=== PATIENT | male | born 1975 | race Caucasian/White ===

== ENCOUNTER 2020-04-21 18:42 | Emergency (ER) | payer SELFPAY ==
[~2020-04-21] VITALS: Ht 170.1 cm; Wt 67.7 kg
--- OUTSIDE RECORDS SUMMARY | 2020-04-21 19:07 | XMS REPORT | Continuity of Care Document ---
Author Author [facility] Organization [employer] Address Unknown Phone Unavailable Allergies There is no data. Medications There is no data. Problems There is no data. Procedures There is no data. Results There is no data. Encounters ACCT No. Visit Date/Time Discharge Status Pt. Type Provider Facility Loc./Unit Complaint [id number] 04/21/2020 18:43:[address] Emergency LUCIEN VENEGAS, GER [facility] FS FALL,ABD/BACK/HIP PAIN
--- NOTE | 2020-04-21 19:08 | ED Trauma-Multisystem ---
General Chief Complaint: Trauma-Non Activation Stated Complaint: FALL,ABD/BACK/HIP PAIN History of Present Illness Date Seen by Provider: Apr 21, 2020 Time Seen by Provider: 18:45 Initial Comments Patient fell approximately 12 feet off a roof landing on his feet but then immediately being catapulted back onto his back onto the lab that he just chopped. 70 days ago and just over the last 24 hours pain has gotten much more substantial across the sacrum up into the mid back up into the flank region difficult to straining at the stool at all difficult to sit better to stand or lay down. He is able to pass bowels and bladder he has no numbness in those areas. Severity: Moderate Pain/Injury Location: Back, Pelvis Method of Injury: Fall Modifying Factors: Immobilization; No Jarring, No Movement Loss of Consciousness: No Loss of Consciousness Associated Symptoms (Fall): No Chest Pain, No Dizziness, No Headache, No Lightheadedness, No Nausea/Vomiting, No Neck Pain, No Shortness of Air Allergies and Home Medications Allergies Coded Allergies: No Known Drug Allergies (Unverified , 04/21/20) Patient Home Medication List Home Medication List Reviewed: Yes Review of Systems Review of Systems Constitutional: No chills, No dizziness, No malaise Eyes: Denies Blurred Vision, Denies Decreased Acuity Ears: No Symptoms Reported; Denies Dizziness Nose: No Symptoms Reported Mouth: No Symptoms Reported Throat: No Symptoms to Report Respiratory: No short of breath; other (mild pain on deep breathing) Cardiovascular: Denies Chest Pain, Denies Irregular Heart Rate Gastrointestinal: No diarrhea, No nausea, No vomiting Musculoskeletal: back pain, muscle pain, muscle stiffness; No muscle twitching, No muscle weakness, No neck pain Skin: No change in color, No lesions Psychiatric/Neurological: Denies Headache, Denies Numbness, Denies Tingling Past Uisxtdy-Grutdi-Klbkzk Hx Past Med/Social Hx: Reviewed Nursing Past Med/Soc Hx Patient Social History Recent Foreign Travel: No Contact w/Someone Who Travel: No Physical Exam Vital Signs Vital Signs - First Documented 04/21/20 18:51 Temp 36.9 Pulse 96 Resp 18 B/P (MAP) 159/79 (105) Pulse Ox 99 O2 Delivery Room Air Height, Weight, BMI Height: '" Weight: lbs. oz. kg; BMI Method: General Appearance: WD/WN, Moderate Distress Head: No Evidence of Injury Ears, Nose, Throat: Hearing Grossly Normal Neck: Full Range of Motion, Non Tender Cardiovascular: Regular Rate, Rhythm, No Murmur Respiratory: Lungs Clear, Normal Breath Sounds Gastrointestinal: No Organomegaly, Non Tender Back: CVA Tenderness (R), Decreased Range of Motion, Muscle Spasm, Vertebral Tenderness Extremity: Normal Inspection, Normal Range of Motion Neurologic/Psychiatric: Alert, Oriented x3, No Motor/Sensory Deficits Skin: Normal Color, Warm/Dry Progress/Results/Core Measures Results/Orders My Orders Orders - GER MCGRAW JR, MD Ct Abdomen/Pelvis W (04/21/20 19:03) Iohexol Injection (Omnipaque 350 Mg/Ml 1 (04/21/20 19:15) Received Contrast (Hold Metformin- Contr (04/21/20 19:15) Sodium Chloride Flush (Catheter Flush Sy (04/21/20 19:15) Ns (Ivpb) (Sodium Chloride 0.9% Ivpb Bag (04/21/20 19:15) Ed Iv/Invasive Line Start (04/21/20 19:28) Medications Given in ED Current Medications Medications Dose Ordered Sig/Shahriar Route Start Time Stop Time Status Last Admin Dose Admin Iohexol 100 ml ONCE ONCE IV 04/21/20 19:15 04/21/20 19:16 DC 04/21/20 19:30 100 ML Sodium Chloride 10 ml NEEDED PRN IV 04/21/20 19:15 04/21/20 19:32 10 ML Sodium Chloride 100 ml ONCE ONCE IV 04/21/20 19:15 04/21/20 19:16 DC 04/21/20 19:31 100 ML Vital Signs/I&O 04/21/20 18:51 Temp 36.9 Pulse 96 Resp 18 B/P (MAP) 159/79 (105) Pulse Ox 99 O2 Delivery Room Air Departure Communication (Admissions) CT scan negative we'll go ahead with Toradol and Norflex follow-up if problems we'll send home with some cyclobenzaprine. Impression Primary Impression: Contusion, back Qualified Codes: S20.229A - Contusion of unspecified back wall of thorax, initial encounter Disposition: HOME, SELF-CARE Condition: Stable Departure-Patient Inst. Patient Instructions: Contusion (DC) Scripts Cyclobenzaprine HCl (Cyclobenzaprine HCl) 10 Mg Tablet 5 MG PO BID PRN for SPASMS, #6 TAB 0 Refills Prov: GER MCGRAW JR, MD 04/21/20 GER MCGRAW JR, MD Apr 21, 2020 19:08
[2020-04-21] MEDS ORDERED: HOLD METFORMIN - RECEIVED CONTRAST 20 ML VIAL IV SCH (19:15)
[2020-04-21] MEDS ORDERED: CATHETER FLUSH 10 ML SYR IV PRN (19:15)
[2020-04-21] MEDS ORDERED: NS 100 ML (IVPB) BAG IV ONE (19:15)
[2020-04-21] MEDS ORDERED: IOHEXOL 350 MG/ML 100 ML (OMNIPAQUE 350) VIAL IV ONE (19:15)
[2020-04-21] MEDS ORDERED: CYCL10TA9 PO (21:11)
[2020-04-21] MEDS ORDERED: ORPHENADRINE 60 MG/2 ML (NORFLEX) AMP (ED ONLY) IM ONE (21:15)
[2020-04-21] MEDS ORDERED: KETOROLAC 60 MG/2 ML VIAL IM ONE (21:15)
[2020-04-21 21:21] VITALS: BP 146/86
--- NOTE | 2020-04-24 07:21 | Diagnostic Imaging Report ---
TECHNIQUE: CT of the abdomen and pelvis. All CT scans use one or more of the following dose optimizing techniques: automated exposure control, MA and/or KvP adjustment based on patient size and exam type or iterative reconstruction. INDICATION: Patient fell 10' and has abdominal pain. FINDINGS: The lung bases are clear. The liver, gallbladder, spleen, pancreas, left adrenal gland and kidneys are normal. Small fatty nodule is present in the right adrenal gland consistent with an adenoma. Urinary bladder and prostate gland are normal. No ascites or free air is present. Bowel loops appear unremarkable. Minimal arterial sclerosis is present. No fractures are identified. IMPRESSION: There are no acute findings. Dictated by: Dictated on workstation # [id number]
== END 2020-04-21 21:21 | disposition home or self-care (01) ==
LOC: ER FS 18:43
DX: S20.229A Contusion of unspecified back wall of thorax, initial encounter (principal); W13.2XXA Fall from, out of or through roof, initial encounter; W18.39XA Other fall on same level, initial encounter
CPT/HCPCS: 74177

== ENCOUNTER 2021-06-24 12:48 | Emergency (ER) | payer SELFPAY ==
[~2021-06-24] VITALS: Ht 172.7 cm; Wt 72.6 kg
[~2021-06-24 12:48] MED LIST: CYCL10TA9 PO
[2021-06-24] MEDS ORDERED: FAMOTIDINE 20MG/2ML IV (PEPCID) IV STA (12:55)
--- NOTE | 2021-06-24 12:55 | ED Chest Pain ---
General Stated Complaint: CHEST PAIN History of Present Illness Date Seen by Provider: Jun 24, 2021 Time Seen by Provider: 12:52 Initial Comments 46-year-old male presents with chest pressure. Patient reports that for about the last hour and a half he has had some recurrent chest pressure. He does not describe it necessarily as a pain. Pressure is located in the epigastric/ substernal area with a little bit of pain in the left side. He does not have any nausea vomiting diaphoresis or shortness of breath. He reports he has just a really mild pressure at this time. He does smoke 1 1/2 packs/day. Patient reports that he was just sent in there drinking some coffee when the pain started. Allergies and Home Medications Allergies Coded Allergies: No Known Drug Allergies (Unverified , 04/21/20) Patient Home Medication List Home Medication List Reviewed: Yes Cyclobenzaprine HCl (Cyclobenzaprine HCl) 10 Mg Tablet, 5 MG PO BID PRN for SPASMS Prescribed by: GER MCGRAW on 04/21/202110 Review of Systems Review of Systems Constitutional: No chills, No fever Respiratory: Denies Cough, Denies Shortness of Air Cardiovascular: Chest Pain; Denies Edema, Denies Irregular Heart Rate, Denies Lightheadedness Gastrointestinal: Denies Diarrhea, Denies Nausea, Denies Vomiting Genitourinary: No Symptoms Reported Musculoskeletal: no symptoms reported Skin: no symptoms reported Psychiatric/Neurological: No Symptoms Reported Endocrine: No Symptoms Reported Past Uogbnpd-Moigio-Rxfqgt Hx Seasonal Allergies Seasonal Allergies: No Past Medical History Surgeries: Yes (Cancer Removal (Lip, Neck, Mouth)) Respiratory: No Cardiac: No Neurological: No Genitourinary: No Gastrointestinal: No Musculoskeletal: No Endocrine: No HEENT: No Cancer: Yes Oral Did You Recieve Any Treatments: No Psychosocial: No Integumentary: No Physical Exam Vital Signs Vital Signs - First Documented 06/24/21 13:01 Temp 35.8 Pulse 69 Resp 14 B/P (MAP) 157/90 (112) Pulse Ox 98 O2 Delivery Room Air Capillary Refill : Height, Weight, BMI Height: '" Weight: lbs. oz. 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 Norm as Tested Skin: Normal Color, Warm/Dry Progress/Results/Core Measures Results/Orders Lab Results Laboratory Tests Test 06/24/21 13:00 06/24/21 14:54 Range/Units White Blood Count 11.6 H 4.3-11.0 10^3/uL Red Blood Count 4.45 4.30-5.52 10^6/uL Hemoglobin 13.9 13.3-17.7 g/dL Hematocrit 41 40-54 % Mean Corpuscular Volume 92 80-99 fL Mean Corpuscular Hemoglobin 31 25-34 pg Mean Corpuscular Hemoglobin Concent 34 32-36 g/dL Red Cell Distribution Width 13.6 10.0-14.5 % Platelet Count 224 130-400 10^3/uL Mean Platelet Volume 10.0 9.0-12.2 fL Neutrophils (%) (Auto) 60 42-75 % Lymphocytes (%) (Auto) 29 12-44 % Monocytes (%) (Auto) 8 0-12 % Eosinophils (%) (Auto) 3 0-10 % Basophils (%) (Auto) 1 0-10 % Neutrophils # (Auto) 7.0 1.8-7.8 X 10^3 Lymphocytes # (Auto) 3.4 1.0-4.0 X 10^3 Monocytes # (Auto) 0.9 0.0-1.0 X 10^3 Eosinophils # (Auto) 0.3 0.0-0.3 10^3/uL Basophils # (Auto) 0.1 0.0-0.1 10^3/uL Prothrombin Time 12.5 12.2-14.7 SEC INR Comment 0.9 0.8-1.4 Activated Partial Thromboplast Time 40 H 24-35 SEC Sodium Level 143 135-145 MMOL/L Potassium Level 4.2 3.6-5.0 MMOL/L Chloride Level 106 98-107 MMOL/L Carbon Dioxide Level 28 21-32 MMOL/L Anion Gap 9 5-14 MMOL/L Blood Urea Nitrogen 9 7-18 MG/DL Creatinine 0.59 L 0.60-1.30 MG/DL Estimat Glomerular Filtration Rate 148 BUN/Creatinine Ratio 15 Glucose Level 97 70-105 MG/DL Calcium Level 9.7 8.5-10.1 MG/DL Corrected Calcium 8.5-10.1 MG/DL Magnesium Level 1.9 1.6-2.4 MG/DL Total Bilirubin 0.3 0.1-1.0 MG/DL Aspartate Amino Transf (AST/SGOT) 38 H 5-34 U/L Alanine Aminotransferase (ALT/SGPT) 21 0-55 U/L Alkaline Phosphatase 72 40-136 U/L Myoglobin 48.7 10.0-92.0 NG/ML Troponin I < 0.30 < 0.30 <0.30 NG/ML Total Protein 7.3 6.4-8.2 GM/DL Albumin 4.6 H 3.2-4.5 GM/DL My Orders Orders - MCLAUGHLIN,LARA L DO Cbc With Automated Diff (06/24/21 12:55) Magnesium (06/24/21 12:55) Chest 1 View Ap/Pa Only (06/24/21 12:55) Ekg Tracing (06/24/21 12:55) Comprehensive Metabolic Panel (06/24/21 12:55) Myoglobin Serum (06/24/21 12:55) Protime With Inr (06/24/21 12:55) Partial Thromboplastin Time (06/24/21 12:55) Monitor-Rhythm Ecg Trace Only (06/24/21 12:55) Lipid Panel (06/25/21 06:00) Aspirin Chewable Tablet (Baby Aspirin Ch (06/24/21 13:00) Ed Iv/Invasive Line Start (06/24/21 12:55) Troponin I Fs (06/24/21 12:55) Famotidine Injection (Pepcid Injection) (06/24/21 12:55) Troponin I Fs (06/24/21 14:48) Medications Given in ED Current Medications Medications Dose Ordered Sig/Shahriar Route Start Time Stop Time Status Last Admin Dose Admin Aspirin 324 mg ONCE ONCE PO 06/24/21 13:00 06/24/21 13:01 DC 06/24/21 13:09 324 MG Vital Signs/I&O 06/24/21 13:01 Temp 35.8 Pulse 69 Resp 14 B/P (MAP) 157/90 (112) Pulse Ox 98 O2 Delivery Room Air Initial ECG Impression Date: Jun 24, 2021 Initial ECG Impression Time: 12:48 Initial ECG Rate: 78 Initial ECG Rhythm: Normal Sinus Initial ECG Intervals: Normal Initial ECG Impression: Normal Comment Normal EKG, no acute change, no STEMI Departure Impression Primary Impression: Chest pain Qualified Codes: R07.9 - Chest pain, unspecified Additional Impression: Gastroesophageal reflux disease Qualified Codes: K21.9 - Gastro-esophageal reflux disease without esophagitis Disposition: HOME, SELF-CARE Condition: Stable Departure-Patient Inst. Referrals: NO,LOCAL PHYSICIAN (PCP/Family) Primary Care Physician Patient Instructions: Chest Pain That Is Not Caused by the Heart (DC), Chest Pain, Adult ED Add. Discharge Instructions: Pepcid daily as directed on package Follow-up with your primary care provider if symptoms return or become more frequent LARA MCLAUGHLIN DO Jun 24, 2021 12:55
[2021-06-24] MEDS ORDERED: ASPIRIN 81 MG CHEW (CHILDREN'S ASA) PO ONE (13:00)
[2021-06-24 13:04] LABS: HEMATOCRIT 41 % (40-54); HEMOGLOBIN 13.9 g/dL (13.3-17.7); MEAN CORPUSCULAR HEMOGLOBIN 31 pg (25-34); MEAN CORPUSCULAR HGB CONC 34 g/dL (32-36); MEAN CORPUSCULAR VOLUME 92 fL (80-99); PLATELET COUNT 224 10^3/uL (130-400); WHITE BLOOD COUNT 11.6 10^3/uL (4.3-11.0)
[2021-06-24 13:05] LABS: BASOPHILS # (AUTO) 0.1 10^3/uL (0.0-0.1); BASOPHILS % (AUTO) 1 % (0-10); EOSINOPHILS # (AUTO) 0.3 10^3/uL (0.0-0.3); EOSINOPHILS % (AUTO) 3 % (0-10); LYMPHOCYTES # (AUTO) 3.4 X 10^3 (1.0-4.0); LYMPHOCYTES % (AUTO) 29 % (12-44); MONOCYTES # (AUTO) 0.9 X 10^3 (0.0-1.0); MONOCYTES % (AUTO) 8 % (0-12); NEUTROPHILS % (AUTO) 60 % (42-75)
[2021-06-24 13:16] LABS: INR 0.9 (0.8-1.4); PROTHROMBIN TIME PATIENT 12.5 SEC (12.2-14.7)
[2021-06-24 13:20] LABS: BILIRUBIN,TOTAL 0.3 MG/DL (0.1-1.0); BUN/CREATININE RATIO 15; CALCIUM 9.7 MG/DL (8.5-10.1); CARBON DIOXIDE 28 MMOL/L (21-32); CHLORIDE 106 MMOL/L (98-107); CREATININE SERUM 0.59 MG/DL (0.60-1.30); GFR ESTIMATED 148; GLUCOSE 97 MG/DL (70-105); MAGNESIUM 1.9 MG/DL (1.6-2.4); POTASSIUM 4.2 MMOL/L (3.6-5.0); SODIUM 143 MMOL/L (135-145)
[2021-06-24 13:21] LABS: ALANINE AMINOTRANSFERASE 21 U/L (0-55); ALBUMIN 4.6 GM/DL (3.2-4.5); ALKALINE PHOSPHATASE 72 U/L (40-136); TOTAL PROTEIN 7.3 GM/DL (6.4-8.2)
--- NOTE | 2021-06-24 13:23 | Diagnostic Imaging Report ---
EXAMINATION: Chest radiograph, portable AP view. DATE: 06/24/2021 1:07 PM INDICATION: 46-year-old male, chest pain. COMPARISON: None. FINDINGS: Heart size and mediastinal contours are unremarkable. There is no identified pneumothorax. There is no large pleural effusion. There is no identified focal airspace consolidation. IMPRESSION: No identified acute cardiopulmonary abnormality. Dictated by: Dictated on workstation # [id number]
[2021-06-24 15:26] VITALS: BP 121/69
== END 2021-06-24 15:27 | disposition home or self-care (01) ==
LOC: EDUNIT# 12:48 → ER FS 12:49
DX: R07.9 Chest pain, unspecified (principal); K21.9 Gastro-esophageal reflux disease without esophagitis
CPT/HCPCS: 36415; 71045; 80053; 83735; 83874; 84484; 85025; 85610; 85730; 93005; 93041